=== PATIENT | male | born 1950 | race Caucasian/White ===

== ENCOUNTER 2022-10-14 14:00 | Emergency (ER) | payer MEDICARE ==
[2022-10-14] MEDS ORDERED: Morphine 4 MG/ML VIAL ONE (14:47)
[2022-10-14] MEDS ORDERED: Ondansetron ODT 4 MG TAB ONE (14:47)
== END 2022-10-14 16:08 | disposition home or self-care (01) ==
LOC: CSHERS 14:00
DX: M54.42 Lumbago with sciatica, left side (principal); I10 Essential (primary) hypertension; E11.9 Type 2 diabetes mellitus without complications; I25.10 Atherosclerotic heart disease of native coronary artery without angina pectoris
CPT/HCPCS: 96372; J2270; Q0162